=== PATIENT | male | born 1995 | race Caucasian/White ===

== ENCOUNTER 2019-05-31 20:17 | Emergency (ER) | payer MEDICAID ==
[~2019-05-31] VITALS: Ht 180.3 cm; Wt 78.0 kg
[2019-05-31 20:23] VITALS: BP 137/69
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
--- NOTE | 2019-05-31 20:56 | NUR ---
MAE RN: REPORT FROM ALEJANDRA VELIZ.
[2019-05-31] MEDS ORDERED: NEOSPORIN OINT. PKT 1 PACKET ONE (21:15)
--- NOTE | 2019-05-31 22:11 | NUR ---
Water provided. Pt thanked for patience.
--- NOTE | 2019-05-31 22:19 | NUR ---
At time of d/c, pt alert, oriented and in NAD. Pteducated on OTC meds, home care, follow-up and S/Sx to return. Pt VU. Pt ambulatory out of room.
== END 2019-05-31 22:21 | disposition home or self-care (01) ==
LOC: ED 21:45
DX: S50.812A Abrasion of left forearm, initial encounter (principal); W01.0XXA Fall on same level from slipping, tripping and stumbling without subsequent striking against object, initial encounter; Y93.89 Activity, other specified; Y92.009 Unspecified place in unspecified non-institutional (private) residence as the place of occurrence of the external cause; Y99.8 Other external cause status
CPT/HCPCS: 99284

== ENCOUNTER 2019-11-01 17:31 | Emergency (ER) | payer MEDICAID ==
[~2019-11-01] VITALS: Ht 177.8 cm; Wt 72.2 kg
[2019-11-01] MEDS ORDERED: SODIUM CHLORIDE FLUSH 10ML SYR IVF ONE (18:00)
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
[2019-11-01 18:25] LABS: BASOPHILS # (AUTO) 0.04 x10^3/uL (0-0.1); BASOPHILS % (AUTO) 0 % (0-1); EOSINOPHILS # (AUTO) 0.11 x10^3/uL (0-0.4); EOSINOPHILS % (AUTO) 1 % (1-7); LYMPHOCYTES # (AUTO) 1.24 x10^3/uL (1-3.4); LYMPHOCYTES % (AUTO) 8 % (22-44); MD NO; MEAN CORPUSCULAR HEMOGLOBIN 30.7 pg (27.5-34.5); MEAN CORPUSCULAR HGB CONC 33.6 g/dL (33.2-36.2); MEAN CORPUSCULAR VOLUME 91.3 fL (81-97); MEAN PLATELET VOLUME 7.5 fL (7.4-10.4); MONOCYTES # (AUTO) 1.09 x10^3/uL (0.2-0.8); MONOCYTES % (AUTO) 7 % (2-9); NEUTROPHILS # (AUTO) 13.06 x10^3/uL (1.8-6.8); NEUTROPHILS % (AUTO) 84 % (42-75); PLATELET COUNT 272 x10^3/uL (130-400); RED BLOOD COUNT 5.03 x10^6/uL (4.38-5.82); RED CELL DISTRIBUTION WIDTH 13.1 % (9.4-14.8)
[2019-11-01 18:34] LABS: ALANINE AMINOTRANSFERASE 39 U/L (12-78); ANION GAP 7 mmol/L (5-15); CALCIUM 8.7 mg/dL (8.5-10.1); CHLORIDE 106 mmol/L (98-107); CREATININE 0.95 mg/dL (0.7-1.3)
[2019-11-01 18:36] LABS: ALKALINE PHOSPHATASE 65 U/L (45-117); BILIRUBIN,TOTAL 0.6 mg/dL (0.2-1.0); TOTAL PROTEIN 7.2 g/dL (6.4-8.2)
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
--- NOTE | 2019-11-01 19:25 | NUR ---
PT RETURNED FROM CT. HE IS A&OX4. GIVEN EDUCATION ABOUT NOT COMBINING OTHER SUBSTANCES WITH THE NARCOTICS HE IS TAKING AND TO TAKE THE RX PERSCRIBED. PT GIVEN URINAL AND EDUCATED FOR CLEAN CATCH UA, AWAITING SAMPLE.
--- NOTE | 2019-11-01 19:42 | NUR ---
PT PLACED ON SECURITY ADMINISTRATOR, SIDERAILS UP, URINAL AND CALL LIGHT IN REACH. MOTHER AT BEDSIDE.
[2019-11-01 19:51] LABS: AMPHETAMINE SCREEN, URINE Negative (Negative); BARBITURATE SCREEN, URINE Negative (Negative); BENZODIAZEPINE SCREEN, URINE Negative (Negative); CANNABINOID SCREEN, URINE Positive (Negative); COCAINE SCREEN, URINE Negative (Negative); METHADONE SCREEN, URINE Negative (Negative); OPIATE SCREEN, URINE Positive (Negative)
--- NOTE | 2019-11-01 20:15 | NUR ---
PT SLEEPING, RESPIRATIONS EVEN AND UNLABORED. AWAITING ORDERS, WILL CONTINUE TO MONITOR.
--- NOTE | 2019-11-01 20:59 | NUR ---
TASK RN. PT D/C'D PER ERMD ORDERS. PT VERBALIZED UNDERSTANDING OF D/C ORDERS, STEADY GAIT UPON D/C.
[2019-11-01 21:00] VITALS: BP 127/66
== END 2019-11-01 21:05 | disposition home or self-care (01) ==
LOC: ED 19:59
DX: S00.03XA Contusion of scalp, initial encounter (principal); S40.011A Contusion of right shoulder, initial encounter; S09.90XA Unspecified injury of head, initial encounter; R41.82 Altered mental status, unspecified; F17.200 Nicotine dependence, unspecified, uncomplicated; Y04.8XXA Assault by other bodily force, initial encounter; Y93.89 Activity, other specified; Y92.89 Other specified places as the place of occurrence of the external cause; Y99.8 Other external cause status
CPT/HCPCS: 36415; 70450; 80053; 80307; 85025; 99285

== ENCOUNTER 2019-11-06 08:09 | Emergency (ER) | payer MEDICAID ==
[~2019-11-06] VITALS: Ht 180.3 cm; Wt 75.3 kg
[2019-11-06 08:10] VITALS: BP 147/85
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
== END 2019-11-06 08:48 | disposition home or self-care (01) ==
LOC: ED 08:18
DX: S01.511D Laceration without foreign body of lip, subsequent encounter (principal); Z48.02 Encounter for removal of sutures; Y08.89XD Assault by other specified means, subsequent encounter
CPT/HCPCS: 99282

== ENCOUNTER 2019-11-12 01:08 | Emergency (ER) | payer MEDICAID ==
[~2019-11-12] VITALS: Ht 180.3 cm; Wt 75.0 kg
[2019-11-12 01:13] VITALS: BP 136/63
--- NOTE | 2019-11-12 01:55 | NUR ---
PT RESTING IN [facility] AT THIS TIME; NADN. ORDERS RECEIVED AT THIS TIME.
[2019-11-12] MEDS ORDERED: LIDODERM 5% PATCH TD ONE ×2 (01:57→02:00)
[2019-11-12] MEDS ORDERED: KETOROLAC 30 MG/1 ML ONE (01:57)
[2019-11-12] MEDS ORDERED: ACETAMINOPHEN 500 MG TABLET ONE (01:57)
[2019-11-12] MEDS ORDERED: ACETAMINOPHEN 500 MG TABLET PO ONE (02:00)
[2019-11-12] MEDS ORDERED: KETOROLAC 30 MG/1 ML IM ONE (02:00)
--- NOTE | 2019-11-12 02:11 | NUR ---
PT MEDICATED PER MAR FOR PAIN. PT REFUSING TORADOL IM AT THIS TIME; DR MIRZA AWARE. US AT FOR SCAN OF PT.
--- NOTE | 2019-11-12 02:43 | NUR ---
PT REQUESTING TO LEAVE AMA. AMA PAPERWORK SIGNED PRIOR TO PT DEPARTING ER.
== END 2019-11-12 02:44 | disposition left against medical advice (07) ==
LOC: ED 02:38
DX: R10.9 Unspecified abdominal pain (principal); R11.2 Nausea with vomiting, unspecified; F17.210 Nicotine dependence, cigarettes, uncomplicated
CPT/HCPCS: 76770; 99284; 99406